=== PATIENT | female | born 1965 | race Caucasian/White ===

== ENCOUNTER 2019-10-11 21:36 | Emergency (ER) | payer MEDICARE ==
[~2019-10-11] VITALS: Ht 160 cm; Wt 68.0 kg
[2019-10-11 21:41] VITALS: BP 128/65
[2019-10-11] MEDS ORDERED: GABAPENTIN800 M1 PO (21:45)
[2019-10-11] MEDS ORDERED: LORCET 5-325 M1 EACH PO (21:45)
[2019-10-11] MEDS ORDERED: MS CONTIN 30 MG30 M1 PO (21:46)
[2019-10-11] MEDS ORDERED: PERIDEX 0.12%473 M1 SWISH&SPIT (22:15)
[2019-10-11] MEDS ORDERED: NAPROSYN500 MG PO (22:15)
[2019-10-11] MEDS ORDERED: PENICILLIN V P500 MG PO (22:15)
== END 2019-10-11 22:35 | disposition home or self-care (01) ==
LOC: M.ERS 21:36
DX: K02.9 Dental caries, unspecified (principal); Z88.2 Allergy status to sulfonamides; Z88.5 Allergy status to narcotic agent; Z90.710 Acquired absence of both cervix and uterus